=== PATIENT | female | born 1990 | race Two or more races ===

== ENCOUNTER 2019-06-03 19:33 | Emergency (ER) | payer OTHER ==
[~2019-06-03] VITALS: Ht 170.2 cm; Wt 65.8 kg
[2019-06-03 19:55] VITALS: BP 122/83
--- NOTE | 2019-06-03 19:55 | NUR ---
ED Nurse Note: Patient walked in to Er c/o lower back pain 12/17. States felt at work today at 1130. Patient AAO x4, VSS at this time.
[2019-06-03] MEDS ORDERED: Acetaminophen 500mg (ES) tab ORAL ONE (20:15)
[2019-06-03] MEDS ORDERED: ROBAXIN-750750 MG PO (20:37)
[2019-06-03] MEDS ORDERED: LIDODERM700 M1 TOPIC (20:37)
[2019-06-03] MEDS ORDERED: TYLENOL EXTRA500 MG ORAL (20:37)
[2019-06-03 20:41] VITALS: BP 122/83
--- NOTE | 2019-06-03 20:42 | NUR ---
ED Nurse Note: Pt cleared by health care Provider for discharge. DC instructions/prescription was given and explained to pt and verbalized understanding of teachings. All medical deviecs such as ID band removed. Pt is AAO x4, ambulatory and left with all personal belongings.
--- NOTE | 2019-06-04 10:57 | Diagnostic Imaging Report ---
Indication: Back pain Comparison: None Findings: 3 views of the lumbar spine were obtained. No acute fracture or malalignment is identified. Vertebral body heights and disk spaces are well maintained. Posterior elements are unremarkable. Impression: No acute findings.
--- NOTE | 2019-06-04 22:08 | Emergency Room Report ---
History of Present Illness General Chief Complaint: Back Injury Source: Patient Present Illness HPI 29-year-old female presents ED for evaluation. Complaining of lower back pain. States at work today she had a slip and fall and landed on her back. Denies hitting her head or LOC. Pain is dull, 9 out of 10, nonradiating. Denies any other injuries. No other aggravating relieving factors. Denies any other associated symptoms Allergies: Coded Allergies: No Known Allergies (Unverified , 06/03/19) Patient History Past Medical History: none Past Surgical History: none Pertinent Family History: none Social History: Denies: smoking, alcohol use, drug use Last Menstrual Period: 05/20/19 Now: No Immunizations: UTD Reviewed Nursing Documentation: PMH: Agreed; PSxH: Agreed Nursing Documentation-PMH Past Medical History: No Stated History Review of Systems All Other Systems: negative except mentioned in HPI Physical Exam Vital Signs Date Time Temp Pulse Resp B/P (MAP) Pulse Ox O2 Delivery O2 Flow Rate FiO2 06/03/19 19:42 98.2 74 18 122/83 (96) 100 Room Air Sp02 EP Interpretation: reviewed, normal General Appearance: no apparent distress, alert, GCS 15, non-toxic Head: normocephalic, atraumatic Eyes: bilateral eye normal inspection, bilateral eye PERRL ENT: hearing grossly normal, normal pharynx, no angioedema, normal voice Neck: full range of motion, supple/symm/no masses Respiratory: chest non-tender, lungs clear, normal breath sounds, speaking full sentences Cardiovascular #1: regular rate, rhythm, no edema Cardiovascular #2: 2+ carotid (R), 2+ carotid (L), 2+ radial (R), 2+ radial (L) , 2+ dorsalis pedis (R), 2+ dorsalis pedis (L) Gastrointestinal: normal bowel sounds, non tender, soft, non-distended, no guarding, no rebound Rectal: deferred Genitourinary: normal inspection, no CVA tenderness, vertebral tenderness Musculoskeletal: normal range of motion, gait/station normal Neurologic: alert, motor strength/tone normal, oriented x3, sensory intact, responsive, speech normal Psychiatric: judgement/insight normal, memory normal, mood/affect normal, no suicidal/homicidal ideation Reflexes: 3+ bicep (R), 3+ bicep (L), 3+ tricep (R), 3+ tricep (L), 3+ knee (R) , 3+ knee (L) Lymphatic: no adenopathy Medical Decision Making Diagnostic Impression: Primary Impression: Injury of back Qualified Codes: S39.92XA - Unspecified injury of lower back, initial encounter ER Course Hospital Course 29 yo F presents with back pain s/p trip and fall Differential diagnoses include: Fracture, dislocation, sprain, contusion Clinical course Patient placed on stretcher. After initial history and physical, I ordered pain medications and Xrays of L spine Xrays prelim read shows no acute fracture, good vertebral body height. I discussed findings with patient. On reassessment pain improved. Will discharge to home. I will provide referrals Diagnosis - injury of back Stable and discharged to home with prescription for tylenol,robaxin, lidoderm. weight bear as tolerated. Followup with PMD. Return to ED if symptoms recur or worsen Other X-Ray Diagnostic Results Other X-Ray Diagnostic Results : X-Ray ordered: L spine # of Views/Limited Vs Complete: 3 View Indication: Pain EP Interpretation: Yes Interpretation: no dislocation, no soft tissue swelling, no fractures Impression: No acute disease Electronically Signed by: Electronically signed by Peng Null MD Last Vital Signs Date Time Temp Pulse Resp B/P (MAP) Pulse Ox O2 Delivery O2 Flow Rate FiO2 06/03/19 20:45 98.2 06/03/19 20:41 18 122/83 100 Room Air 06/03/19 19:42 74 Status: improved Disposition: HOME, SELF-CARE Condition: Stable Scripts Lidocaine Patch* (Lidoderm Patch*) 1 Each Adh..patch 1 PATCH TOPIC DAILY, #7 PATCH 0 Refills Patch(es) may remain in place for up to 12 hours in any 24-hour period. Prov: Peng Null MD 06/03/19 Methocarbamol* (ROBAXIN-750*) 750 Mg Tablet 750 MG PO TID, #21 TAB 0 Refills Prov: Peng Null MD 06/03/19 Acetaminophen* (TYLENOL EXTRA STRENGTH*) 500 Mg Tablet 500 MG ORAL Q8H PRN for Prn Headache/Temp > 101, #30 TAB 0 Refills Prov: Peng Null MD 06/03/19 Referrals: NON PHYSICIAN (PCP) [facility] Departure Forms: Return to Work Return to Work Date: Jun 04, 2019 Work Restrictions: None Peng Null MD Jun 04, 2019 22:08
== END 2019-06-03 20:45 | disposition home or self-care (01) ==
LOC: EMR 20:45
DX: S39.92XA Unspecified injury of lower back, initial encounter (principal); W01.0XXA Fall on same level from slipping, tripping and stumbling without subsequent striking against object, initial encounter; Y92.9 Unspecified place or not applicable; Y99.0 Civilian activity done for income or pay
CPT/HCPCS: 72020; 99283